=== PATIENT | female | born 1975 | race Caucasian/White ===

== ENCOUNTER 2025-01-18 14:12 | Emergency (ER) | payer OTHER, SELFPAY ==
[2025-01-18 14:43] VITALS: BP 161/93
[2025-01-18 15:03] LABS: % Basophils 0.8 % (0-2); % Eosinophils 1.8 % (0-6); % Immature Granulocytes 0.3 % (0-0.5); % Lymphocytes 34.7 % (20.5-51.1); % Monocytes 5.6 % (1.7-9.3); % Neutrophils 56.8 % (42.2-75.2); Absolute Basophils 0.1 10^3/uL (0-0.2); Absolute Eosinophils 0.1 10^3/uL (0-0.7); Absolute Lymphocytes 2.5 10^3/uL (1.2-3.4); Absolute Monocytes 0.4 10^3/uL (0.1-0.6); Absolute Neutrophils 4.2 10^3/uL (1.4-6.5); Hematocrit 38.4 % (37.0-47.0); Hemoglobin 12.9 g/dL (12.0-16.0); Mean Corp Hgb Conc. 33.6 g/dL (33.0-37.0); Mean Corpuscular Hgb 29.1 pg (27.0-31.0); Mean Corpuscular Volume 86.5 fL (81.0-99.0); Mean Platelet Volume 9.6 fL (7.4-10.4); Nucleated Red Blood Cells % 0 %; Platelet Count 291 10^3/uL (130-400); Red Blood Cell Count 4.44 10^6/uL (4.20-5.40); Red Cell Dist. Width 12.8 % (11.5-14.5); White Blood Cell Count 7.3 10^3/uL (4.8-10.8)
[2025-01-18 15:12] LABS: HCG, Serum Qualitative Screen Negative
[2025-01-18 15:30] LABS: Troponin I < 0.012 ng/ml
[2025-01-18 16:10] LABS: ALT (SGPT) 19 U/L (0-35); AST (SGOT) 24 U/L (14-36); Albumin 4.1 g/dl (3.5-5.0); Alkaline Phosphatase 100 U/L (38-126); Blood Urea Nitrogen 10 mg/dl (7-17); Calcium 9.6 mg/dl (8.4-10.2); Carbon Dioxide 31 mmol/L (22-30); Chloride 100 mmol/L (98-107); Glucose 196 mg/dl (70-99); Lipase 61 U/L (23-300); Potassium 5.2 mmol/L (3.5-5.1); Sodium 137 mmol/L (135-145); Total Bilirubin 0.4 mg/dl (0.2-1.3); Total Protein 6.9 g/dl (6.3-8.2); eGFR > 60.00
[2025-01-18 17:45] VITALS: BP 144/84; BMI 33.9
--- NOTE | 2025-01-18 18:17 | ED.GENMED ---
History of Present Illness
General
Chief Complaint: Dizziness
Source: patient
Exam Limitations: none
Time Seen by Provider: 01/18/25 17:57
Nursing documentation reviewed up to this point in time: agreed with
History of Present Illness
History of Present Illness:
49-year-old female presents Emergency Department due to dizziness for the past 2 nights. She had an EKG done in urgent care, which was abnormal and she was sent to the emergency department. She awoke with dizziness, nausea and vomiting.
Past History
Past History
ED Past Medical History: NIDDM and Hypothyroidism
ED Past Surgical History: Appendectomy
Social History
Tobacco: Non-smoker
Personal:
Living: with family
Employment: Employed
Family History
Family History: Diabetes; Negative Early CAD
Review of Systems
Review of Systems
Allergies reviewed?: Yes
All Other Systems: Not applicable
Constitutional: Reports no symptoms
EENT: Reports no symptoms
Respiratory: Reports no symptoms
Cardiac: Reports no symptoms
ABD/GI: Reports nausea and vomiting
: Reports no symptoms
Musculoskeletal: Reports no symptoms
Skin: Reports no symptoms
Neurological: Reports dizzy
Endocrine: Reports no symptoms
Hematologic/Lymphatic: Reports no symptoms
Psychiatric: Reports no symptoms
Phy Exam
Physical Exam
Physical Exam:
Physical Exam
General: no apparent distress, not acutely ill
Neck: supple. no meningeal signs. normal posterior pharynx
Heart: s1/s2 regular rate and rhythm, no murmur. equal radial
pulses.
HEENT: Pupils equal round reactive to light, EOMI, nystagmus, leftward
Lungs: no acute respiratory distress. clear bilaterally
Abdomen: normal bowel sounds. not tender. no CVAT
Neuro: alert and oriented. no focal neurological deficits cranial nerves II through XII intact
Skin: no rash
Psychiatric: well kept. interactive and cooperative
Extremities: no edema. no calf tenderness. negative homans. good distal pulses
Course
Orders/Labs/Results
Orders:
Orders
01/18/25 14:14
ECG [Electrocardiogram (*1)] Stat
Reason for Study: Vertigo / Dizzy
EKG- Treatment ONCE
01/18/25 14:48
Test Result ONCE
01/18/25 14:53
Complete Blood Count/With Diff Urgent
Comprehensive Metabolic Panel Urgent
HCG, Serum Qualitative Screen Urgent
Lipase Urgent
Troponin I Urgent
Abnormal Lab Results
01/18/25
14:53
Potassium 5.2 H mmol/L
(3.5-5.1)
Carbon Dioxide 31 H mmol/L
(22-30)
Glucose 196 H mg/dl
(70-99)
01/18/25 14:53
01/18/25 14:53
Vital Signs
Initial and Last Documented VS:
Initial Vital Signs
Temp Pulse Resp BP Pulse Ox
97.8 F 65 18 161/93 100
01/18/25 14:43 01/18/25 14:43 01/18/25 14:43 01/18/25 14:43 01/18/25 14:43
Last Documented Vital Signs
Temp Pulse Resp BP Pulse Ox
97.8 F 63 17 144/84 99
01/18/25 14:43 01/18/25 17:45 01/18/25 17:45 01/18/25 17:45 01/18/25 17:45
MDM/Problems Addressed
Differential Diagnosis Includes:
CVA, vertigo
MDM/Problems Addressed:
49-year-old female with vertigo, suspect benign peripheral. Normal EKG. Normal neurologic exam. Stable for discharge. Will refer to physical therapy, treat with meclizine.
Chronic conditions affecting care: DM
*Pulse Oximetry
Patient hypoxic: no
*EKG
Interpreted by ED Provider?: Yes
EKG Intrepretation Date: 01/18/25
EKG Intrepretation Time: 14:18
Interpretation: normal
Comparison EKG: no changes
Heart Rate: 60
Rate: normal
Rhythm: sinus
[place]: normal axis
Interval: normal interval
QRS Pattern: normal QRS
Ischemia: no ischemia
*Engineering Inspection Assistant Interpretation
Rate: normal
Interpretation: normal
Heart Rate: 60
Rhythm: sinus
*Critical Care Note
Total Time (30-74mins, 75-104mins- exclusive of procedures): Not Applicable
Patient Management
Social determinants of health affecting care: Living situation
Escalation/DeEscalation of care consider admission/obs:
Admission not indicated
ED Attending Note
-
Portions of this chart may have been created with voice recognition software.� Occasional wrong word or��sound alike� substitutions may have occurred due to the inherent limitations of voice recognition software.
Discharge Plan
Departure
Patient Disposition: Home (Routine Discharge)
Date of Disposition: 01/18/25
Time of Disposition: 18:25
Patient with high blood pressure during this ER visit?: Yes
Condition: Good
Discharge Problem:
Vertigo
Instructions: Vertigo (a Type of Dizziness) (DC), BLOOD PRESSURE
Prescriptions:
New
meclizine 25 mg tablet
25 mg PO QID PRN (Reason: dizziness) Qty: 10 0RF
No Action
levothyroxine 25 MCG tablet
25 mcg PO DAILY
Cymbalta:
PO DAILY
(DME) subcutaneous insulin pump [Insulin Pump [id number]] 1 EACH misc
0.775 units .Route Q1H
Patient Comments:
0.775 units/hr
Referrals:
UNKNOWN - PT NOT,INTERVIEWE [Unknown Provider] -
Interventions
Interventions:
*Risk Screen - Suicide Last Done: 01/18/25 17:45
*General Assessment Last Done: 01/18/25 17:45
*Neglect/Abuse Screening Last Done: 01/18/25 17:45
*ED COVID-19 Vaccine History Last Done: 01/18/25 14:43
ED- Neurological Assessment Last Done: 01/18/25 17:46
ED- Cardiac Assessment Last Done: 01/18/25 17:46
Discharge Date and Time
Print Language: MAURITIAN
[2025-01-18 18:39] VITALS: BP 137/84
[2025-01-18] MEDS: ANTIVERT 25 MG PO (18:40)
== END 2025-01-18 18:49 | disposition home or self-care (01) ==
LOC: EMR 14:12
PROVIDERS: Emergency Medicine; EMERGENCY PHYSICIAN Emergency Medicine; FAMILY PHYSICIAN Family Medicine
DX: R42 Dizziness and giddiness (principal); R03.0 Elevated blood-pressure reading, without diagnosis of hypertension
CPT/HCPCS: 99284; 80053; 83690; 84484; 84703; 85025; 93005